=== PATIENT | female | born 2000 | race Caucasian/White ===

== ENCOUNTER 2022-04-09 14:31 | Outpatient (CLI) | payer OTHER, BC, SELFPAY ==
--- NOTE | 2022-04-09 14:00 | CRLHL7_ITS ---
For Patients: As a result of the Century Cures Act, medical imaging exams and procedure reports are released immediately into your electronic medical record. You may view this report before your referring provider. If you have questions, please contact your health care provider. INDICATION: Head and neck injury. TECHNIQUE: CT head without contrast. COMPARISON: None. FINDINGS: CSF spaces: Within normal limits for age. Brain parenchyma and extra-axial spaces: The gasca-white differentiation is normal. No sign of mass, hemorrhage, or midline shift. No extra-axial fluid collection. Skull base and calvarium: The visualized paranasal sinuses and mastoid air cells demonstrate no acute or significant findings. The visualized orbits are grossly unremarkable. No skull fractures. IMPRESSION: No acute intracranial abnormality. Please note that all CT scans at this facility use dose modulation, iterative reconstruction, and/or weight-based dosing when appropriate to reduce radiation dose to as low as reasonably achievable. Dictated by Fran Estevez MD @ 04/09/2022 3:18:16 PM (Electronically Signed)
--- NOTE | 2022-04-09 14:00 | CRLHL7_ITS ---
For Patients: As a result of the Century Cures Act, medical imaging exams and procedure reports are released immediately into your electronic medical record. You may view this report before your referring provider. If you have questions, please contact your health care provider. INDICATION: Head and neck injury. TECHNIQUE: CT cervical spine without contrast. COMPARISON: None. FINDINGS: Vertebrae: Alignment is normal. There are no fractures or suspicious bony lesions. Discs and facet joints: Disc spaces and facets are within normal limits. Extraspinal findings: Incomplete visualization of few tiny sub centimeter thyroid nodules. Otherwise, prevertebral soft tissues, visualized airway, and visualized lungs are unremarkable. IMPRESSION: No acute displaced fractures or static subluxations. Please note that all CT scans at this facility use dose modulation, iterative reconstruction, and/or weight-based dosing when appropriate to reduce radiation dose to as low as reasonably achievable. Dictated by Fran Estevez MD @ 04/09/2022 3:23:55 PM (Electronically Signed)
== END 2022-04-09 14:32 | disposition home or self-care (01) ==
LOC: CT 14:31
PROVIDERS: Visit Provider Family Medicine
DX: M54.2 Cervicalgia (principal); S09.90XA Unspecified injury of head, initial encounter
CPT/HCPCS: 70450; 72125

== ENCOUNTER 2023-07-08 10:49 | Emergency (ER) | payer BC, SELFPAY ==
[2023-07-08 11:16] VITALS: BP 139/90; PULSE 86; RESP 16; TEMP 36.6; O2SAT 100; BMI 21.5
--- NOTE | 2023-07-08 12:52 | ED.GENADULT ---
HPI - General Adult General Date Seen: 07/08/23 Chief complaint: Abdominal Pain Stated complaint: numb legs/ abdominal and back pain Time Seen by Provider: 07/08/23 12:26 History of Present Illness HPI narrative: This is a pleasant 22-year-old generally healthy female presenting to the ER today with abdominal pain, nausea, diarrhea, and rash affecting her upper and lower extremities. She is worried about possible toxic shock syndrome. She does note that she has had fairly heavy, painful periods for the past 3 or 4 months. Her current. Began a few days ago and was occurring at sick expected time during her cycle. She normally uses pads for her.. However this week she and her boyfriend traveled by plane at [place] on Wednesday and flew back on Wednesday. They were in [place] for short business trip but while they were there [place]. While she was swimming she used a tampon. After going swimming she got her tampon was in and and left it in overnight Wednesday. That night she began to feel a bit achy with some aches in her legs. The following morning she was a bit more achy with primarily leg aches but other myalgias. She had some nausea and a couple of loose stools. . Was still ongoing. No vaginal discharge or purulent bleeding. No fevers. She was able to travel home on the plane. Overnight tonight she also developed a very light lacy red rash on her legs that is now on her arms. She says it almost looks like eczema to her (she has had a history of eczema). No peeling. No blisters. No bumps or urticaria. No rash in her mouth or on her genitals. No fevers. She is not lightheaded or dizzy. Recalling that she accidentally left her tampon in on Wednesday, she is worried that the rash might represent toxic shock syndrome so came here to the ER. Related Data Home Medications Medication Instructions Recorded Confirmed No Known Home Medications 04/09/22 07/08/23 Allergies Allergy/AdvReac Type Severity Reaction Status Date / Time amoxicillin Allergy Mild Rash Verified 07/08/23 11:16 [facility] Medical History (Updated 07/08/23 @ 14:58 by Edvin Owens MD) Neck pain ?M54.2 - Cervicalgia (ICD-10) Head injury ?S09.90XA - Unspecified injury of head, initial encounter (ICD-10) Social History Smoking Status: Never smoker Non-prescribed substance use: denies use Exam Narrative: Exam Narrative: Constitutional: Appears well-developed and well-nourished. Alert. Conversant. Non toxic. HENT: Head: Atraumatic. Nose: Nose normal. Mouth/Throat: Oral mucosa is clear and moist. no trismus. Pharynx normal. Tonsils symmetric. No tonsillar enlargement, erythema, or exudate. Eyes: Conjunctivae normal. EOM normal. Pupils equal, round, and reactive to light. No scleral icterus. Neck: Normal range of motion. Neck supple. No tracheal deviation present. No adenopathy Cardiovascular: Normal rate, regular rhythm. No gallop. No friction rub. No murmur heard. Symmetric radial and PT artery pulses Pulmonary/Chest: Effort normal. No stridor. No respiratory distress. No wheezes. No rales. No rhonchi . No tenderness. Abdominal: Soft. Bowel sounds normal. No distension. No mass. Right lower quadrant and left lower quad> suprapubic tenderness. No upper tenderness. No Mccullough sign. No CVA tenderness. No rebound. No guarding. Musculoskeletal: RUE: Normal range of motion. No tenderness. No deformity LUE: Normal range of motion. No tenderness. No deformity RLE: Normal range of motion. No edema. No tenderness. No deformity LLE: Normal range of motion. No edema. No tenderness. No deformity Lymph: No cervical adenopathy. Neurological: Alert and oriented to person, place, and time. Normal strength. CN II-VII intact. No sensory deficit. GCS eye subscore is 4. GCS verbal subscore is 5. GCS motor subscore is 6. Normal coordination Skin: She has a nonpalpable Iveth, faintly erythematous rash affecting the skin of her arms and legs. It affects the volar and dorsal surfaces. No raised lesions. No vesicles or pustules. No blistering. No desquamation. No lesions on her hands or on her palms or on her soles. No rash on her trunk. No rash on her neck or face. No mucosal lesions. Rash is nonspecific but could be as simple as dry skin from the [place]. It is not really a diffuse erythroderma or sunburn like rash. Skin is warm and dry. No pallor. Normal capillary refill. Psychiatric: Normal mood. Normal affect. Very polite. Const: Vital Signs, click to edit/add: Vital Signs - 24 hr 07/08/23 11:16 Temperature 98 F Pulse Rate [Pulse Oximeter] 86 Respiratory Rate 16 Blood Pressure [Ri t Upper Arm] 139/90 H Pulse Oximetry 100 Oxygen Delivery Me thod Room Air Course Vital Signs Vital signs: Initial Vital Signs Temperature 98 F 07/08/23 11:16 Temperature Source Temporal Artery Scan 07/08/23 11:16 Pulse Rate 86 07/08/23 11:16 Respiratory Rate 16 07/08/23 11:16 Blood Pressure 139/90 H 07/08/23 11:16 Blood Pressure Mean 106 H 07/08/23 11:16 Blood Pressure Position Sitting 07/08/23 11:16 Pulse Oximetry 100 07/08/23 11:16 Oxygen Delivery Method Room Air 07/08/23 11:16 Vital Signs Temperature 98 F 07/08/23 11:16 Pulse Rate 86 07/08/23 11:16 Respiratory Rate 16 07/08/23 11:16 Blood Pressure 139/90 H 07/08/23 11:16 Pulse Oximetry 100 07/08/23 11:16 Oxygen Delivery Method Room Air 07/08/23 11:16 Temperature 98 F 07/08/23 11:16 Pulse Rate 86 07/08/23 11:16 Respiratory Rate 16 07/08/23 11:16 Blood Pressure 139/90 H 07/08/23 11:16 Pulse Oximetry 100 07/08/23 11:16 Oxygen Delivery Method Room Air 07/08/23 11:16 Medications Administered Medications: Discontinued Medications Generic Name Dose Route Start Last Admin Trade Name Freq PRN Reason Stop Dose Admin Sodium Chloride 1,000 mls @ 1,000 mls/hr 07/08/23 13:15 07/08/23 13:25 0.9 % Sodium Chloride 1000 Ml IV 07/08/23 14:14 1,000 mls/hr .Q1H VADIM Administration Ketorolac Tromethamine 15 mg 07/08/23 14:26 07/08/23 14:30 Ketorolac 15 Mg/Ml Inj IVP 07/08/23 14:27 15 mg ONCE ONE Administration Ondansetron HCl 4 mg 07/08/23 13:13 07/08/23 13:12 Ondansetron 2 Mg/Ml Inj IVP 07/08/23 13:14 4 mg ONCE ONE Administration Medical Decision Making MDM Narrative Medical decision making narrative: Very pleasant generally healthy 22-year-old female presenting to the ER today with myalgias, nausea, diarrhea, and a fine lacy rash affecting her arms and legs. She is worried about possible early toxic shock syndrome because she accidentally left a tampon in overnight 2 nights ago Wednesday (actually went to bed with that in but then woke up and took it out). We do consider staphylococcal (or streptococcal) toxic shock syndrome in her differential. At this point she is hemodynamically stable with normal blood pressure normal pulse rate. She is not febrile. She is clinically well-appearing and mentating normally. She does have a fine lacy rash which could theoretically be and very early phase of a toxin mediated rash, but would be more consistent with dry skin [place] or eczema. Although clinical appearance is reassuring, we did do laboratory workup to look for other lab findings associated with TSS. She does not have leukocytosis. Kidney function normal. Venous lactic normal. Urinalysis normal. She does have blood on the urine dipstick but is also currently menstruating. LFTs are minimally abnormal with AST of 39 and ALT of 45. Bilirubin alk-phos are normal. She does not have any right upper quadrant pain to suggest active hepatitis, cholecystitis or choledocholithiasis. He she does report that she had alcoholic beverages 2 nights ago on Wednesday so this could potentially be sec will of alcohol consumption. At this point LFTs less than 2 times the upper limit of normal and do not really meet diagnostic criteria for TSS. At this point clinical judgment would suggest hospitalization is not indicated. Rather, we will monitor the patient at home. Precautions to come back to the ER right away if she has any worsening symptoms over the next few hours such as developing fever, weakness, uncontrolled nausea vomiting, spreading rash, or any other symptoms. Even if she continues to do well, I recommend that she recheck tomorrow with her PCP or the ER to recheck her labs including her LFTs to see if they normalize or worsen. She received Zofran, Toradol, IV fluids here in the ER and is feeling better prior to discharge Lab Data Labs: Lab Results 07/08/23 07/08/23 Range/Units 13:25 13:30 WBC 5.59 (4.50-11.00) K/uL RBC 4.85 (4.00-5.20) m/uL Hgb 14.9 (12.0-16.0) gm/dL Hct 41.7 (33.0-51.0) % MCV 86 (80-100) fL MCH 31 (26-34) pg MCHC 36 (32-36) gm/dL RDW Coeff of Cheyanne 11.3 L (11.5-15.5) % Plt Count 243 (140-440) K/uL Neut % (Auto) 77.5 H (42.0-72.0) % Lymph % (Auto) 14.8 L (20-44) % Parmer % (Auto) 5.5 (0.0-11.0) % Eos % (Auto) 1.3 (0.0-7.0) % Baso % (Auto) 0.4 (0.0-3.0) % Neut # (Auto) 4.30 (1.7-7.0) K/uL Lymph # (Auto) 0.80 L (0.90-2.90) K/uL Parmer # (Auto) 0.30 (0.00-0.90) K/UL Eos # (Auto) 0.07 (0.00-0.50) K/uL Baso # (Auto) 0.02 (0.00-0.30) K/uL Abs Immat Gran (auto) 0.03 (0.00-0.30) K/uL Imm/Tot Granulo (auto) 0.5 % Sodium 140 (135-149) mmol/L Potassium 3.7 (3.6-5.1) mmol/L Chloride 105 (96-114) mmol/L Carbon Dioxide 24 (20-32) mmol/L Anion Gap 11 (7-15) mEq/L BUN 5 (5-24) mg/dL Creatinine 0.6 (0.5-1.5) mg/dL Estimated Creat Clear 144.23 Estimated GFR 131 ml/min Glucose 86 (60-115) mg/dL Lactate 0.8 (0.5-1.9) mmol/L Calcium 9.4 (8.4-10.6) mg/dL Total Bilirubin 0.9 (0.1-1.5) mg/dL AST 39 H (12-35) U/L ALT 45 H (4-35) U/L Alkaline Phosphatase 70 (40-150) U/L Total Protein 8.7 H (6.0-8.3) g/dL Albumin 4.9 (3.3-5.0) g/dL Lipase 78 (23-300) U/L Urine Color Yellow (Yellow) Urine Appearance Clear (Clear) Urine pH 6.0 (5.0-8.5) Ur Specific [place] 1.015 (1.000-1.030) Urine Protein Negative (Negative) Urine Glucose (UA) Negative (Negative) Urine Ketones Negative (Negative) Urine Blood 3+ A (Negative) Urine Nitrite Negative (Negative) Urine Bilirubin Negative (Negative) Urine Urobilinogen 0.2 (0.2-1.0) Ur Leukocyte Esterase Negative (Negative) Urine RBC 0-2 (0-2) Urine WBC 0-2 (0-5) Ur Squamous Epith Cells Few (None-Few) Urine Bacteria None (None) Urine HCG, Qual Negative (Negative) Discharge Plan Discharge Clinical Impression: Myalgia, Abnormal LFTs, Rash and nonspecific skin eruption Patient Disposition: Home, Self-Care Condition: Stable Instructions: Acute Rash (ED) Additional Instructions: At this time most of your workup suggest that you do not have toxic shock syndrome. However I want her to monitor your condition carefully. If you have worsening rash, worsening body aches, fever, uncontrolled nausea or vomiting, weakness, or any other concerns you should come back to the ER to be rechecked right away. I do notice that 2 of your liver function tests are very mildly abnormal. The cause is not clear. This could normal for your liver, could be caused by alcohol consumption, or could be related to a very early phase of some other illness. Please get your liver function tests rechecked by tomorrow (either at her regular doctor's office or in the ER). Continue to rest today. Drink plenty of fluids and stay hydrated. Use Tylenol or ibuprofen if needed for body aches and pain. Remember, if you get worse, please come back to the ER to be rechecked right away. Prescriptions: No Action No Known Home Medications Follow Up/Referrals: Deandra Malone MD [Staff Physician] - Stand Alone Forms: Hatsize Info Instructions
[2023-07-08] MEDS: ONDANSETRON 2 MG/ML inj 4 MG IVP (13:12)
[2023-07-08] MEDS: 0.9 % SODIUM CHLORIDE 1000 ml 1,000 ML IV (13:25)
[2023-07-08 13:36] LABS: Lactate* 0.8 mmol/L (0.5-1.9)
[2023-07-08 13:39] LABS: Appearance Urine Clear (Clear); Bilirubin Urine Negative (Negative); Blood Urine 3+ (Negative); Color Urine Yellow (Yellow); Glucose Urine Negative (Negative); Ketones Urine Negative (Negative); Leukocyte Esterase Urine Negative (Negative); Nitrite Urine Negative (Negative); Protein Urine Negative (Negative); Specific Gravity Urine 1.015 (1.000-1.030); Urobilinogen Urine 0.2 (0.2-1.0)
[2023-07-08 13:42] LABS: Ur HCG Qualitative* Negative (Negative)
[2023-07-08 13:54] LABS: Basophils Absolute Auto 0.02 K/uL (0.00-0.30); Basophils Percent Auto 0.4 % (0.0-3.0); Eosinophils Absolute Auto 0.07 K/uL (0.00-0.50); Eosinophils Percent Auto 1.3 % (0.0-7.0); Hematocrit 41.7 % (33.0-51.0); Hemoglobin* 14.9 gm/dL (12.0-16.0); Immature Granulocytes Abs Auto 0.03 K/uL (0.00-0.30); Immature Granulocytes Pct Auto 0.5 %; Lymphocytes Percent Auto 14.8 % (20-44); Mean Corpuscular HGB Conc 36 gm/dL (32-36); Mean Corpuscular Hemoglobin 31 pg (26-34); Mean Corpuscular Volume 86 fL (80-100); Monocytes Percent Auto 5.5 % (0.0-11.0); Neutrophils Percent Auto 77.5 % (42.0-72.0); Platelet Count* 243 K/uL (140-440); RDW Coefficient of Variation % 11.3 % (11.5-15.5); Red Blood Count 4.85 m/uL (4.00-5.20); White Blood Count* 5.59 K/uL (4.50-11.00)
[2023-07-08 13:57] LABS: Albumin* 4.9 g/dL (3.3-5.0); Chloride* 105 mmol/L (96-114); Sodium* 140 mmol/L (135-149)
[2023-07-08 13:58] LABS: Potassium* 3.7 mmol/L (3.6-5.1)
[2023-07-08 14:00] VITALS: BP 128/67; PULSE 62; RESP 14; O2SAT 98
[2023-07-08 14:00] LABS: Alanine Aminotransferase* 45 U/L (4-35); Alkaline Phosphatase* 70 U/L (40-150); Anion Gap 11 mEq/L (7-15); Aspartate Amino Transferase* 39 U/L (12-35); Bilirubin Total* 0.9 mg/dL (0.1-1.5); Blood Urea Nitrogen* 5 mg/dL (5-24); Carbon Dioxide* 24 mmol/L (20-32); Creatinine* 0.6 mg/dL (0.5-1.5); Est. Creatinine Clearance* 144.23; Estimated Glomerular Filt Rate 131 ml/min; Glucose* 86 mg/dL (60-115); Lipase* 78 U/L (23-300); Total Protein* 8.7 g/dL (6.0-8.3)
[2023-07-08 14:01] LABS: Calcium* 9.4 mg/dL (8.4-10.6)
[2023-07-08 14:02] LABS: Slide Review Reflex No
[2023-07-08 14:06] LABS: RBC Urine 0-2 (0-2); Squamous Epithelial Cell Urine Few (None-Few); WBC Urine 0-2 (0-5)
--- OUTSIDE RECORDS SUMMARY | 2023-07-08 14:07 | XMS_ITS | Encounter Summary ---
Author Name Unknown Organization [facility] Address [address] [place] [address] Care Team Providers Care Plastic Mixer Name Role Phone Unavailable Primary Care Provider Unavailabl e Encounter Details Date Type Department Care Team (Late st Contact Info) Description 06/05/2023 4:40 PM CDT Office Visit [facility] at [address] [place] [phone] Matteo Michel L.P.N. [address] [place] [address] Cerumen Impacted Bilateral (Primary Dx) Social History Tobacco Use Types Packs/Day Years Used Date Smoking Tobacco: Never Assessed Nutrition Answer Date Recorded Nutrition: EVOO Fat Source Unknown 06/04 Nutrition: Servings of Fruits/Vegetables per Day Not on file 06/05/2023 Dental Answer Date Recorded Dental: Regular Dentist Unknown 06/05/19 24 Sex and Gender Information Value Date Recorded Sex Assigned at Not on file Gender Identity Not on file Sexual Orientation Not on file documented as of this encounter Progress Notes * Matteo Michel, L.P.N. - 06/05/2023 4:40 PM CDT Alisha is seen At [facility] Mercedes Govea CNP ordered lavage of both ears due to impacted cerumen bilateral. Verified there are no PE (pressure equalization) tubes in place. The procedure wasexplained to the patient and verbal consent obtained. Irrigation was performed using a large syringe and 500 cc warm tap water. Irrigant returned clear and yellow with moderate amount of soft cerumen. The procedure was tolerated well, without complication. Instructed not to place cotton tip swabs or other foreign objects in ears and to call the office if there is pressure, discomfort, irritability, and/or decreased hearing. Understanding verbalized. Provider notified of completion. documented in this encounter Miscellaneous Notes * Addendum Note - Matteo Michel L.P.N. - 06/05/2023 4:40 PM CDTAddended by: MATTEO MICHEL on: 06/05/2023 05:03 PM Modules accepted: Orders documented in this encounter Plan of Treatment Not on file documented as of this encounter Visit Diagnoses Diagnosis Cerumen Impacted Bilateral- Primary documented in this encounter
--- OUTSIDE RECORDS SUMMARY | 2023-07-08 14:07 | XMS_ITS ---
Author Name Unknown Organization [facility] Address [address] [place] [address] Care Team Providers Care Varnish Mixer Name Role Phone Unavailable Unavailable Unavailable Surgery Details Not on file Complications Check Surgery Details section. Procedure Estimated Blood Loss Check Surgery Details section. Procedure Findings Check Surgery Details section. Procedure Specimens Taken Check Surgery Details section.
--- OUTSIDE RECORDS SUMMARY | 2023-07-08 14:07 | XMS_ITS | Clinical Summary ---
Author Name Unknown Organization [facility] Address [address] [place] [address] Care Team Providers Care Green Belt Name Role Phone Unavailable Primary Care Provider Unavailabl e Source Comments Patient records contain information from all sites at [facility]. For routine questions regarding patient records, call [phone] during business hours, M-F 8:00 AM - 5:00 PM Central Time. Record requests for emergency care only can be directed to [phone] at any time.[facility] Encounters Date Type Department Care Team Description 07/08/2023 10:00 AM CDT Office Visit [facility] at [address] [place] [phone] Salud Kapoor, L.P.N. Procedure And Treatment Not Carried Out Due To Patient Leaving Prior To Being Seen By Health Care Provider (Primary Dx) 06/05/2023 4:40 PM CDT Office Visit [facility] at [address] [place] [phone] Elizabeth Michel, L.P.N. Cerumen Impacted Bilateral (Primary Dx) from Last 3 Months Social History Tobacco Use Types Packs/Day Years [...] on file Sexual Orientation Not on file Plan of Treatment Health Maintenance Due Date Last Done Comments Cervical Cancer Screening 2001 Chlamydia and Gonorrhea Screening 2001 HIV Screening 2001 Hepatitis C Screening 2001 1 week Well Child Check-Up 2001 Well Child Check-Up (WCC) 2001 1 month Well Child Check-Up 2001 2 month Well Child Check-Up 2001 4 month Well Child Check-Up 2001 6 month Well Child Check-Up 2001 9 month Well Child Check-Up 03/11/2002 12 month Well Child Check-Up 06/09/2002 15 month Well Child Check-Up 09/09/2002 18 month Well Child Check-Up 12/10/2002 2 year Well Child Check-Up 06/10/2003 30 month Well Child Check-Up 12/11/2003 3 year Well Child Check-Up 06/09/2004 Well Child Check-Up Completed in Past Year 06/09/2004 4 year Well Child Check-Up 06/09/2005 5 year Well Child Check-Up 06/09/2006 6 year Well Child Check-Up 06/10/2007 7 year Well Child Check-Up 06/09/2008 8 year Well Child Check-Up 06/09/2009 9 year Well Child Check-Up 06/09/2010 10 year Well Child Check-Up 06/10/2011 11 year Well Child Check-Up 06/09/2012 12 year Well Child Check-Up 06/09/2013 13 year Well Child Check-Up 06/09/2014 15 year Well Child Check-Up 06/10/2015 15 year Well Child Check-Up 06/09/2016 17 year Well Child Check-Up 06/09/2017 18 year Well Child Check-Up 06/09/2018 18 year Well Child Check-Up 06/10/2019 20 year Well Child Check-Up 06/09/2020 21 year Well Child Check-Up 06/09/2021 22 year Well Child Check-Up 06/09/2022 DTaP,Tdap,and Td Vaccines (7 - Td or Tdap) 10/17/2022 10/17/2012, 09/10/2005, 01/08/2003, Additional history exists COVID-19 Vaccine ( - 2022- season) 2022 03/20/2021, 08/01/2020, 07/04/2020 Influenza Vaccine (#1) 2022 2, 12/06/2008, 01/22/2006 Depression Screening (Annual PHQ-2) 03/15/2023 Hepatitis B Vaccines Completed 07/14/2002, 2001, 2001 Pneumococcal vaccine (0-64 years) Aged Out 01/08/2003, 01/13/2002, 2001, Additional history exists No longer eligible based on patient's age to complete this topic HPV Vaccines Completed 10/22/2016, 07/2013, 10/19/2013 Meningococcal Vaccine Completed 11/04/2018, 013
--- OUTSIDE RECORDS SUMMARY | 2023-07-08 14:07 | XMS_ITS | Encounter Summary ---
Author Name Unknown Organization [facility] Address [address] [place] [address] Care Team Providers Care Torch Solderer Name Role Phone Unavailable Primary Care Provider Unavailabl e Reason for Visit * Reason Onset Date Comments Rash Left Without Being Seen 07/08/2023 Encounter Details Date Type Department Care Team (Late st Contact Info) Description 07/08/2023 10:00 AM CDT Office Visit [facility] at [address] [phone] Salud Kapoor L.P.N. [address] [place] [address] Procedure And Treatment Not Carried Out Due To Patient Leaving Prior To Being Seen By Health Care Provider (Primary Dx) Social History Tobacco Use Types Packs/Day Years Used Date Smoking Tobacco: Never Assessed Nutrition Answer Date Recorded Nutrition: EVOO Fat Source Unknown 06/04 Nutrition: Servings of Fruits/Vegetables per Day Not on file 06/05/2023 Dental Answer Date Recorded Dental: Regular Dentist Unknown 06/05/19 Sex and Gender Information Value Date Recorded Sex Assigned at Not on file Gender Identity Not on file Sexual Orientation Not on file documented as of this encounter Progress Notes * Salud Kapoor, L.P.N. - 07/08/2023 10:00 AM CDT Alisha Silva was scheduled and checked in for an appointment but left before being seen by Annika Christian.P.N.. documented in this encounter Plan of Treatment Not on file documented as of this encounter Visit Diagnoses Diagnosis Procedure And Treatment Not Carried Out Due To Patient Leaving Prior To Being Seen By Health Care Provider- Primary documented in this encounter
--- OUTSIDE RECORDS SUMMARY | 2023-07-08 14:07 | XMS_ITS | Referral Summary ---
Author Name Unknown Organization [facility] Address [address] [place] [address] Care Team Providers Care Apprentice Machinist Outside Name Role Phone Unavailable Primary Care Provider Unavailabl e Source Comments Patient records contain information from all sites at [facility]. For routine questions regarding patient records, call [phone] during business hours, M-F 8:00 AM - 5:00 PM Central Time. Record requests for emergency care only can be directed to [phone] at any time.[facility] Encounters Date Type Department Care Team Description 07/08/2023 10:00 AM CDT Office Visit [facility] at [address] [place] [phone] Salud Kapoor, L.P.N. Procedure And Treatment Not Carried Out Due To Patient Leaving Prior To Being Seen By Health Care Provider (Primary Dx) 06/05/2023 4:40 PM CDT Office Visit [facility] at [address] [place] [phone] Elizabeth Michel, L.P.N. Cerumen Impacted Bilateral (Primary [...] Orientation Not on file Plan of Treatment Not on file
--- OUTSIDE RECORDS SUMMARY | 2023-07-08 14:08 | XMS_ITS | Referral Summary ---
Author Name Unknown Organization [facility] Address [address] [place] [id number] Care Team Providers Care Vp Hr Diversity Name Role Phone No Ref-Primary, Physician Primary Care Provider Allergies Active Allergy Reactions Criticality Noted Date Comments Amoxicillin 01/18/2021 Medications Medication Sig Dispensed Refills Start Date End Date Status [id number] ocortisone (CORTISPORIN) 3.5-90333-2 otic solutionIndications:Acu te swimmer's ear of left side Place 3 drops Into the left ear 4 times daily 10 mL 07/19/2021 Active Active Problems No known active problems Social History Tobacco Use Types Packs/Day Years Used Date Smoking Tobacco: Never Smokeless Tobacco: Current Adolescent Education Answer Date Record ed Getting School Help Needed Not on file 12/05 Sex and Gender Information Value Date Recorded Sex Assigned at Not on file Gender Identity Not on file Sexual Orientation Not on file Last Filed Vital Signs Vital Sign Reading Time Taken Comments Blood Pressure 110/70 07/19/2021 1:30 PM CDT Pulse 69 07/19/2021 1:30 PM CDT Temperature 37.3 ??C (99.2 ??F) 07/19/2021 1:30 PM CD T Respiratory Rate 16 07/19/2021 1:30 PM CDT Oxygen Saturation 99% 07/19/2021 1:30 PM CDT Inhaled Oxygen Concentration - - Weight 65.1 kg (143 lb 9.6 oz) 07/19/2021 1:30 P M CDT Height - - Body Mass Index - - Plan of Treatment Not on file Care Teams Vp Hr Diversity Relationship Specialty Start Date End Date No Ref-Primary, Physician PCP - General 01/18/21
--- OUTSIDE RECORDS SUMMARY | 2023-07-08 14:08 | XMS_ITS | Clinical Summary ---
Author Name Unknown Organization [facility] Address [address] [place] [id number] Care Team Providers Care Svp Name Role Phone No Ref-Primary, Physician Primary Care Provider Allergies Active Allergy Reactions Criticality Noted Date Comments Amoxicillin 01/18/2021 Medications Medication Sig Dispensed Refills Start Date End Date Status uxrybsbl-dkasejvoa-cwky ocortisone (CORTISPORIN) 3.5-99048-5 otic solutionIndications:Acu te swimmer's ear of left [...] Mass Index - - Plan of Treatment Health Maintenance Due Date Last Done Comments ADVANCE CARE PLANNING 2001 ANNUAL REVIEW OF HM ORDERS 2001 CHLAMYDIA SCREENING 2001 YEARLY PREVENTIVE VISIT 2001 HIV SCREENING 2016 HEPATITIS C SCREENING 07/11/2019 PAP 2022 DTAP/TDAP/TD IMMUNIZATION (6 - Td or Tdap) 10/17/2022 10/17/2012, 09/10/2005, 01/13/2002, Additional history exists COVID-19 Vaccine ( season) 2022 03/20/2021, 08/01/2020, 07/04/2020 INFLUENZA VACCINE (#1) 2022 2, 12/06/2008, 01/22/2006 PHQ-2 (once per calendar year) 2023 HEPATITIS B IMMUNIZATION Completed 003, 2001, 2001 Pneumococcal Vaccine: Pediatrics (0 to 5 Years) and At-Risk Patients (6 to 64 Years) Aged Out 01/08/2003, 01/13/2002, 2001, Additional history exists No longer eligible based on patient's age to complete this topic IPV IMMUNIZATION Completed 09/10/2005, 03/2001, 2001, Additional history exists HPV IMMUNIZATION Completed 10/22/2016, 07/2013, 10/19/2013 MENINGITIS IMMUNIZATION Completed 11/04/2018, 10/17 RSV MONOCLONAL ANTIBODY Aged Out No l onger eligible based on patient's age to complete this topic Care Teams Svp Relationship Specialty Start Date End Date No Ref-Primary, Physician PCP - General 01/18/21
--- OUTSIDE RECORDS SUMMARY | 2023-07-08 14:08 | XMS_ITS | Clinical Summary ---
Author Name Unknown Organization [facility] Address [place], [place] [address] Care Team Providers Care Underliner Name Role Phone Pcp, No Unavailable Unavailable Allergies Active Allergy Reactions Criticality Noted Date Comments Amoxicillin Hives 01/16/2013 Medications Medication Sig Dispensed Refills Start Date End Date Status sertraline (ZOLOFT) 50 mg tabletIndications:Anx iety and depression Take 1.5 Tablets (75 mg) by mouth every morning. Dose increase 11/04/21 135 Tablet 1 11/04/2021 Active levonorgestrel-ethiny l estrad, 0.1mg-20mcg, (ALESSE-28) 0.1-20 mg-mcg tabletIndications:Enc ounter for initial prescription of contraceptive pills Take 1 Tablet by mouth once daily. 90 Tablet 3 01/23/2022 Active Active Problems No known active problems Immunizations Name Administration Dates Next Due DT (Age < 7 years) 01/08/2003 DTaP 09/10/2005, 3,01/13/2002,11/09,2001 HIB-HepB (Comvax) 07/14/2002,2001,09/17/19 02 HPV 9 (Gardasil 9) 10/22/2016 Hepatitis A (Peds) 10/22/2016,10/19/2013 Human Papilloma Virus Vaccine 01/17/2014, 014 Inactivated Polio Vaccine 09/10/2005,03/2001,2001,09/16 Influenza, IIV3 (Age 6-35 mos) 12/06/2008 Influenza, IIV3 (Age >=3 years) 12/22/2011,12/06,01/22/2006 MMR 09/10/2005,07/14/2002 Meningococcal Vaccine (Menactra) 10/17/2012 Meningococcal Vaccine (Menveo) 11/04/2018 Pneumococcal conj 7-Valent (Prevnar 7) 1 ,01/13/2002,2001,09/16 Tdap 10/17/2012 Varicella Vaccine 11/10/2006,07/14/2002 Family History Medical History Relation Name Comments Diabetes type II Maternal Grandfather Cancer-breast Other paternal great grandmother; first time in her 40s, then it came back in her 60s Other Other No HD Good Health Sister Relation Name Status Comments Maternal Grandfather Other Sister Social History Tobacco Use Types Packs/Day Years Used Date Smoking Tobacco: Never Smokeless Tobacco: Never Tobacco Cessation:Counseling Given: Yes Comments:No exposure Alcohol Use Standard Drinks/Week Comments Not Currently 0 (1 standard drink = 0.6 oz pur e alcohol) occasionally PHQ-2 Answer Date Recorded PHQ-2 TOTAL SCORE 4 11/04/2021 Social Connections Answer Date Recorded Frequency of Communication with Friends and Fami ly Not on file 10/13/2022 Financial Resource Strain Answer Date R ecorded Difficulty of Paying Living Expenses 3 10/07/2021 Difficulty of Paying Living Expenses Not on file 10/07/2021 Food Insecurity Answer Date Recorded Worried About Running Out of Food in the Last Ye ar 1 10/07/2021 Transportation Needs Answer Date Record ed Lack of Transportation (Medical) 1 10/07/2021 Housing Stability Answer Date Recorded Unable to Pay for Housing in the Last Year 1 10/07/2021 Sex and Gender Information Value Date Recorded Sex Assigned at Not on file Gender Identity Not on file Sexual Orientation Not on file Obstetrics History Para Term AB IAB SAB Ectopic Multiple Livin g Live Births 0 0 0 0 0 0 0 0 0 0 0 Last Filed Vital Signs Vital Sign Reading Time Taken Comments Blood Pressure 128/85 04/14/2022 11:04 AM ALLIED HEALTH TEACHER Pulse 100 04/14/2022 11:04 AM ALLIED HEALTH TEACHER Temperature 36.7 ??C (98.1 ??F) 08/03/2021 1:33 PM CD T Respiratory Rate 16 08/03/2021 1:33 PM CDT Oxygen Saturation 100% 04/14/2022 11:04 AM ALLIED HEALTH TEACHER Inhaled Oxygen Concentration - - Weight 64.9 kg (143 lb) 04/14/2022 11:04 AM ALLIED HEALTH TEACHER Height 169 cm (5' 6.54) 11/04/2021 1:53 PM CDT Body Mass Index - - Plan of Treatment Health Maintenance Due Date Last Done Comments Hepatitis C screening for age 18-79 07/11/2019 Chlamydia for age 16-24 11/05/2019 11/04/2018 Pap test for age 21-65 2022 Tetanus booster 10/17/2022 10/17/2012 BMI (ht and wt on same day) for age 18+ 11/04/2022 11/04/2021 Depression screening for age 12+ 11/04/2022 11/04/2021, 10/07/2021, 06/02/2018, Additional history exists COVID-19 vaccine series ( season) 2022 03/20/2021, 08/01/2020, 07/04/2020 Influenza for age 9-49 11/14/2023 2, 12/06/2008, 01/22/2006 Pneumococcal series for age 6-64 Aged Out 01/08/2003, 01/13/2002, 2001, Additional history exists No longer eligible based on patient's age to complete this topic Tdap Completed 10/17/2012 HPV series for age 9-26 Completed 10/23/19 17, 01/17/2014, 10/19/2013 Meningococcal series for age 11-21 Completed 11/04/2018, 10/17/2012 HIV for age 15-65 Completed 01/23/2022 Procedures Procedure Name Priority Date/Time Associated Diagnosis Comments ANTI HIV 1/2 Routine 01/23/2022 3:18 PM ALLIED HEALTH TEACHER Screen for STD (sexually transmitted disease) GC CHLAMYDIA TRACH PROBE Routine 11/04/2018 12:08 PM CDT Screen for STD (sexually transmitted disease) from Last 3 Months or Most Recently Relevant to Health Maintenance Results * ANTI HIV 1/2 (01/23/2022 3:18 PM ALLIED HEALTH TEACHER) HIV-1/HIV-2 ANTIBODY Non-Reacti ve Non-Reacti ve 01/25/2022 7:32 PM ALLIED HEALTH TEACHER [facility] Comment:HIV-1 p24 and HIV-1/ HIV-2 Ab not detected. Blood BLOOD SPECIMEN / Unknown Venipuncture / Unknown 01/23/2022 3:18 PM ALLIED HEALTH TEACHER 01/23/2022 3:18 PM ALLIED HEALTH TEACHER Iris Kim DO SEND OUTS [facility] [address] [place] [address], [place] * GC CHLAMYDIA TRACH PROBE (11/04/2018 12:08 PM CDT) Pathologist [facility] CHLAMYDIA PROBE Negative 9 2:54 PM CDT [facility] N GONORRHOEAE PROBE Negative 11/07/2018 2:54 PM CDT [facility] Other URINE SPECIMEN / Unknown Non-Blood / Unknown 11/04/2018 12:08 PM CDT 11/04/2018 12:08 PM CDT Princess ROACH MICROBIOLOGY [facility] [address] [place] [address], from Last 3 Months or Most Recently Relevant to Health Maintenance Care Teams Underliner Relationship Specialty Start Date End Date Pcp, No . 01/16/13
[2023-07-08] MEDS: KETOROLAC 15 MG/ML inj IVP (14:30)
[2023-07-08 15:08] VITALS: BP 120/82; PULSE 86; RESP 16; TEMP 36.6
== END 2023-07-08 15:09 | disposition home or self-care (01) ==
PROVIDERS: Emergency Provider Emergency Medicine
DX: R21 Rash and other nonspecific skin eruption (principal); M79.10 Myalgia, unspecified site; R94.5 Abnormal results of liver function studies
CPT/HCPCS: 36415; 80053; 81001; 81025; 83605; 83690; 85025; 96374; 96375; 99284; J1885; J2405; J7030

== ENCOUNTER 2023-07-09 15:05 | Outpatient (CLI) | payer BC, SELFPAY ==
--- OUTSIDE RECORDS SUMMARY | 2023-07-29 14:17 | XMS_ITS | Encounter Summary ---
Author Name Unknown Organization [facility] Address [address] [place] [address] Care Team Providers Care Residential Air Sealing Technician Name Role Phone Unavailable Primary Care Provider Unavailabl e Encounter Details Date Type Department Care Team (Late st Contact Info) Description 06/05/2023 4:40 PM CDT Office Visit [facility] at [address] [place] [phone] Matteo Michel L.P.N. [address] [place] [address] Cerumen Impacted Bilateral (Primary Dx) Social History [...] PM CDT Alisha is seen At [facility] Mercedes Govea CNP ordered lavage of [...]
--- OUTSIDE RECORDS SUMMARY | 2023-07-29 14:17 | XMS_ITS | Clinical Summary ---
Author Name Unknown Organization [facility] Address [place], [place] [address] Care Team Providers Care Side Laster Staple Name Role Phone Pcp, No Unavailable Unavailable [...] Comments Blood Pressure 128/85 04/14/2022 11:04 AM PARKING CASHIER Pulse 100 04/14/2022 11:04 AM PARKING CASHIER Temperature 36.7 ??C (98.1 ??F) 08/03/2021 1:33 PM CD T Respiratory Rate 16 08/03/2021 1:33 PM CDT Oxygen Saturation 100% 04/14/2022 11:04 AM PARKING CASHIER Inhaled Oxygen Concentration - - Weight 64.9 kg (143 lb) 04/14/2022 11:04 AM PARKING CASHIER Height 169 cm (5' 6.54) 11/04/2021 1:53 [...] age 9-26 Completed 10/23/19 17, 01/17/2014, 10/19/2013 HIV for age 15-65 Completed 01/23/2022 Procedures Procedure Name Priority Date/Time Associated Diagnosis Comments ANTI HIV 1/2 Routine 01/23/2022 3:18 PM PARKING CASHIER Screen for STD (sexually transmitted disease) GC CHLAMYDIA TRACH PROBE Routine 11/04/2018 12:08 PM CDT Screen for STD (sexually transmitted disease) from Last 3 Months or Most Recently Relevant to Health Maintenance Results * ANTI HIV 1/2 (01/23/2022 3:18 PM PARKING CASHIER) HIV-1/HIV-2 ANTIBODY Non-Reacti ve Non-Reacti ve 01/25/2022 7:32 PM PARKING CASHIER [facility] Comment:HIV-1 p24 and HIV-1/ HIV-2 Ab not detected. Blood BLOOD SPECIMEN / Unknown Venipuncture / Unknown 01/23/2022 3:18 PM PARKING CASHIER 01/23/2022 3:18 PM PARKING CASHIER Iris Kim [facility] [address] [place] [address], [place] * GC CHLAMYDIA TRACH PROBE (11/04/2018 12:08 PM CDT) CHLAMYDIA PROBE Negative 9 2:54 PM CDT [facility] N GONORRHOEAE PROBE Negative 11/07/2018 2:54 PM CDT [facility] Other URINE SPECIMEN / Unknown Non-Blood / Unknown 11/04/2018 12:08 PM CDT 11/04/2018 12:08 PM CDT Princess ROACH [facility] [address] [place] [address], from Last 3 Months or Most Recently Relevant to Health Maintenance Care Teams Side Laster Staple Relationship Specialty Start Date End Date Pcp, No . 01/16/13
--- OUTSIDE RECORDS SUMMARY | 2023-07-29 14:17 | XMS_ITS | Clinical Summary ---
Author Name Unknown Organization [facility] Address [address] [place] [address] Care Team Providers Care Real Estate Agency Licensee Name Role Phone No Ref-Primary, Physician Primary Care Provider Allergies Active Allergy Reactions Criticality Noted Date Comments Amoxicillin 01/18/2021 Medications Medication Sig Dispensed Refills Start Date End Date Status pwaenvgs-pmatjvxpb-setk ocortisone (CORTISPORIN) 3.5-16687-5 otic solutionIndications:Acu te swimmer's ear of left [...] Vaccine ( season) 2022 03/20/2021, 08/01/2020, 07/04/2020 PHQ-2 (once per calendar year) 2023 INFLUENZA VACCINE (Season Ended) 2023 12/22/2011, 12/06/2008, 01/22/2006 HEPATITIS B IMMUNIZATION Completed 003, 2001, 2001 [...] age to complete this topic Care Teams Real Estate Agency Licensee Relationship Specialty Start Date End Date No Ref-Primary, Physician PCP - General 01/18/21
--- OUTSIDE RECORDS SUMMARY | 2023-07-29 14:17 | XMS_ITS | Referral Summary ---
Author Name Unknown Organization [facility] Address [address] [place] [address] Care Team Providers Care Direct Support Staff Name Role Phone Unavailable Primary Care Provider Unavailabl e Source Comments Patient records contain information from all sites at [facility]. For routine questions regarding patient records, call [phone] during business hours, M-F 8:00 AM - 5:00 PM Central Time. Record requests for emergency care only can be directed to [phone] at any time.[facility] Encounters Date Type Department Care Team Description 07/08/2023 10:00 AM CDT Office Visit [facility] at [address] [place] [address] Salud Kapoor, L.P.N. Procedure And Treatment Not Carried Out Due To Patient Leaving Prior To Being Seen By Health Care Provider (Primary Dx) 06/05/2023 4:40 PM CDT Office Visit [facility] at [address] [place] [phone] Elizabeth Michel, L.P.N. Cerumen Impacted Bilateral (Primary [...]
--- OUTSIDE RECORDS SUMMARY | 2023-07-29 14:17 | XMS_ITS | Clinical Summary ---
Author Name Unknown Organization [facility] Address [address] [place] [address] Care Team Providers Care Certified Coatings Inspector Name Role Phone Unavailable Primary Care Provider Unavailabl e Source Comments Patient records contain information from all sites at [facility]. For routine questions regarding patient records, call [phone] during business hours, M-F 8:00 AM - 5:00 PM Central Time. Record requests for emergency care only can be directed to [phone] at any time.[facility] Encounters Date Type Department Care Team Description 07/08/2023 10:00 AM CDT Office Visit [facility] at [address] [place] [phone] Salud Kapoor, L.P.N. Procedure And Treatment Not Carried Out Due To Patient Leaving Prior To Being Seen By Health Care Provider (Primary Dx) 06/05/2023 4:40 PM CDT Office Visit [facility] at [address] [place] [phone] Elizabeth Michel, L.P.N. Cerumen Impacted Bilateral (Primary [...] HIV Screening 2001 Hepatitis C Screening 2001 DTaP,Tdap,and Td Vaccines (7 - Td or Tdap) 10/17/2022 10/17/2012, 09/10/2005, 01/08/2003, Additional history exists COVID-19 Vaccine ( - 2022-24 season) 2022 03/20/2021, 08/01/2020, 07/04/2020 Influenza Vaccine [...]
--- OUTSIDE RECORDS SUMMARY | 2023-07-29 14:17 | XMS_ITS ---
Author Name Unknown Organization [facility] Address [address] [place] [address] Care Team Providers Care Manager Risk Management Name Role Phone Unavailable Unavailable Unavailable Surgery Details Not on file Complications Check Surgery Details section. Procedure Estimated Blood Loss Check Surgery Details section. Procedure Findings Check Surgery Details section. Procedure Specimens Taken Check Surgery Details section.
--- OUTSIDE RECORDS SUMMARY | 2023-07-29 14:17 | XMS_ITS | Referral Summary ---
Author Name Unknown Organization [facility] Address [address] [place] [address] Care Team Providers Care Warehouse Driver Name Role Phone No Ref-Primary, Physician Primary Care Provider Allergies Active Allergy Reactions Criticality Noted Date Comments Amoxicillin 01/18/2021 Medications Medication Sig Dispensed Refills Start Date End Date Status xhbdgehg-zzbdyruyc-zbto ocortisone (CORTISPORIN) 3.5-86995-5 otic solutionIndications:Acu te swimmer's ear of left [...] of Treatment Not on file Care Teams Warehouse Driver Relationship Specialty Start Date End Date No Ref-Primary, Physician PCP - General 01/18/21
== END 2023-07-09 15:06 | disposition home or self-care (01) ==
LOC: NFLDREF 07-29 14:15
PROVIDERS: PCP Internal Medicine; Visit Provider Internal Medicine
DX: R79.89 Other specified abnormal findings of blood chemistry (principal)
CPT/HCPCS: 80053